=== PATIENT | female | born 1980 | race Caucasian/White ===

== ENCOUNTER 2018-06-23 13:46 | Emergency (ER) | payer SELFPAY ==
[~2018-06-23] VITALS: Ht 165.1 cm; Wt 107.5 kg
[2018-06-23 13:54] VITALS: BP 121/72; Ht 165.1 cm; Wt 107.5 kg
[2018-06-23 14:28] LABS: BASOPHIL % 1.4 % (0-2); PLATELET COUNT 265 x10^3mcL (130-400); RED CELL DISTRIBUTION WIDTH 16.8 % (11.5-14.5)
[2018-06-23 14:52] LABS: CALCIUM 8.9 mg/dL (8.5-10.1); CARBON DIOXIDE 28.4 mmol/L (21-32); CHLORIDE SERUM 103 mmol/L (98-107); CREATININE SERUM 0.5 mg/dL (0.6-1.0); GFR1 > 60 mL/min; GLUCOSE SERUM 100 mg/dL (74-106); POTASSIUM SERUM 3.9 mmol/L (3.5-5.1); SODIUM SERUM 138 mmol/L (136-145)
[2018-06-23 14:56] LABS: ALBUMIN 3.4 g/dL (3.4-5.0); ALKALINE PHOSPHATASE 139 U/L (46-116); ALT/SGPT 39 U/L (14-59); AST/SGOT 24 U/L (15-37); BILIRUBIN TOTAL 0.4 mg/dL (0.20-1.00); LIPASE 84 IU/L (73-393); TOTAL PROTEIN, SERUM 7.6 g/dL (6.4-8.2)
== END 2018-06-23 15:42 | disposition home or self-care (01) ==
LOC: ED 13:46
PROVIDERS: Emergency Medicine
DX: S39.012A Strain of muscle, fascia and tendon of lower back, initial encounter (principal); X58.XXXA Exposure to other specified factors, initial encounter; Y93.89 Activity, other specified; Y92.89 Other specified places as the place of occurrence of the external cause; Y99.8 Other external cause status
CPT/HCPCS: 36415; J1885

== ENCOUNTER 2018-06-28 23:39 | Emergency (ER) | payer SELFPAY ==
[~2018-06-28] VITALS: Ht 165.1 cm; Wt 107.5 kg
[2018-06-28 23:59] VITALS: Ht 165.1 cm; Wt 107.5 kg
[2018-06-29 00:56] VITALS: BP 121/63
== END 2018-06-29 00:45 | disposition home or self-care (01) ==
LOC: ED 23:39
DX: M54.9 Dorsalgia, unspecified (principal); Z98.890 Other specified postprocedural states

== ENCOUNTER 2018-09-26 16:54 | Emergency (ER) | payer SELFPAY ==
[~2018-09-26] VITALS: Ht 152.4 cm; Wt 112.9 kg
[2018-09-26 17:15] VITALS: Ht 152.4 cm; Wt 112.9 kg
[2018-09-26 19:31] VITALS: BP 140/76
== END 2018-09-26 19:31 | disposition home or self-care (01) ==
LOC: ED 16:54
DX: J40 Bronchitis, not specified as acute or chronic (principal)